=== PATIENT | female | born 1935 | race Caucasian/White ===

== ENCOUNTER 2017-11-03 12:30 | Observation (INO) | payer MEDICARE ==
[~2017-11-03] VITALS: Ht 157.5 cm; Wt 42.6 kg
[2017-11-03] VITALS (248 sets, daily range): BP systolic 110–239; BP diastolic 57–135; PULSE 62–125; TEMP 97.7–98.3; O2SAT 54–100
[2017-11-03 13:19] LABS: HEMOGLOBIN 10.9 g/dl (12.5-16.0); MEAN CELL VOLUME 91 fl (80.0-100.0); MEAN CORPUSCULAR HEMOGLOBIN 29 pg (27.0-31.0); MEAN CORPUSCULAR HGB CONC 32 g/dl (33.0-37.0); MEAN PLATELET VOLUME 9.9 fl (7.4-10.4); PLATELET COUNT 262 K/mm3 (130-400); RED BLOOD COUNT 3.77 M/mm3 (4.10-5.30); REDCELL DISTRIBUTION WIDTH-CV 14.8 % (11.5-14.5)
[2017-11-03 13:23] LABS: HEMATOCRIT 34.3 % (37.0-47.0)
[2017-11-03 13:25] LABS: PROTHROMBIN TIME 11.1 SECONDS (9.7-12.8)
[2017-11-03 13:31] LABS: CREATININE, serum 2.22 mg/dL (0.52-1.25)
[2017-11-03] MEDS ORDERED: ASPIRIN 81M81 MG/TA2 PO (13:49)
[2017-11-03] MEDS ORDERED: MAGNESIUM250 M1 PO (13:50)
[2017-11-03] MEDS ORDERED: AMITRIPTYLINE H25 M1 PO (13:50)
[2017-11-03] MEDS ORDERED: ADVIL200 MG PO (13:51)
[2017-11-03] MEDS ORDERED: MUCINEX 60600 MG/TA1 PO (13:52)
[2017-11-03] MEDS ORDERED: PROBIOTIC FORMU1 CAP PO (13:52)
[2017-11-03] MEDS ORDERED: CLARITIN 1010 MG/TAB PO (13:53)
[2017-11-03] MEDS ORDERED: XALATAN EYE DROPS OD (14:11)
[2017-11-03] MEDS ORDERED: [UNRECOGNIZED DRUG - OTHER] PO (14:26)
[2017-11-03] MEDS ORDERED: CYMBALTA 60MG60 MG PO (14:27)
[2017-11-03] MEDS ORDERED: B-12 500 MCG PO (14:28)
[2017-11-03] MEDS ORDERED: K-DUR 10 MEQ T10 MEQ PO (14:29)
[2017-11-03] MEDS ORDERED: BENEFIBER PO (14:30)
[2017-11-03] MEDS ORDERED: COMBIGAN 0.2%-0.5 ML OU (14:31)
[2017-11-03] MEDS ORDERED: FLONASEALLERGY NS (14:31)
[2017-11-03] MEDS ORDERED: SYNTHROID0.088 MG/T PO (14:32)
[2017-11-03] MEDS ORDERED: DIPHENOXYLATE PO (14:33)
[2017-11-04] VITALS (319 sets, daily range): BP systolic 102–176; BP diastolic 47–99; PULSE 64–96; TEMP 97.9–98.3; O2SAT 54–100
[2017-11-04 05:57] LABS: BASO # 0.1 (0.0-0.2); BASO % 1.1 % (0.0-2.0); EOS # 0.6 (0.0-0.7); EOS % 5.6 % (0-4.0); GRAN # 6.7 (1.4-6.5); GRAN % 67.5 % (42.2-75.2); HEMOGLOBIN 10.9 g/dl (12.5-16.0); LYMPH # 1.5 (1.2-3.4); MEAN CELL VOLUME 90 fl (80.0-100.0); MEAN CORPUSCULAR HEMOGLOBIN 29 pg (27.0-31.0); MEAN CORPUSCULAR HGB CONC 32 g/dl (33.0-37.0); MEAN PLATELET VOLUME 10.1 fl (7.4-10.4); MONO % 10.4 % (1.7-9.3); PLATELET COUNT 245 K/mm3 (130-400); RED BLOOD COUNT 3.78 M/mm3 (4.10-5.30); REDCELL DISTRIBUTION WIDTH-CV 14.5 % (11.5-14.5)
[2017-11-04 06:00] LABS: HEMATOCRIT 33.9 % (37.0-47.0)
[2017-11-04 06:07] LABS: CREATININE, serum 2.15 mg/dL (0.52-1.25); POTASSIUM 4.5 mmol/L (3.4-5.0)
[2017-11-04] MEDS ORDERED: PLAVIX 75MG TAB75 MG PO (10:44)
[2017-11-04] MEDS ORDERED: TOPROL XL100 MG PO (10:44)
== END 2017-11-04 15:00 | disposition home or self-care (01) ==
LOC: COL.CAR 12:30 → ICU 16:03
PROVIDERS: Internal Medicine Interventional Cardiology
DX: I25.118 Atherosclerotic heart disease of native coronary artery with other forms of angina pectoris (principal); R94.39 Abnormal result of other cardiovascular function study; I73.9 Peripheral vascular disease, unspecified; J44.9 Chronic obstructive pulmonary disease, unspecified; N18.9 Chronic kidney disease, unspecified; E44.0 Moderate protein-calorie malnutrition; Z90.710 Acquired absence of both cervix and uterus; Z88.0 Allergy status to penicillin; Z88.1 Allergy status to other antibiotic agents; Z88.5 Allergy status to narcotic agent; Z88.8 Allergy status to other drugs, medicaments and biological substances; Z79.02 Long term (current) use of antithrombotics/antiplatelets; Z79.82 Long term (current) use of aspirin; Z79.51 Long term (current) use of inhaled steroids; Z87.891 Personal history of nicotine dependence
CPT/HCPCS: C9600; G0378; G0379; J0360; J1940; J2250; J3010

== ENCOUNTER → 2018-10-24 | Outpatient (CLI) | payer MEDICARE, OTHER ==
[~2018-10-24] MED LIST: ADVIL200 MG PO; AMITRIPTYLINE H25 M1 PO; APRESOLINE50 MG PO; ASPIRIN 81M81 MG/TA2 PO; B-12 500 MCG PO; BENEFIBER PO; CLARITIN 1010 MG/TAB PO; COMBIGAN 0.2%-0.5 ML OU; CRESTOR 10MG10 MG PO; CYMBALTA 60MG60 MG PO; DIPHENOXYLATE PO; FLONASEALLERGY NS; K-DUR 10 MEQ T10 MEQ PO; K-TAB10 PO; LASIX 40MG TABL40 MG PO; LOMOTIL 0.025 M1 TAB PO; MAGNESIUM250 M1 PO; MUCINEX 60600 MG/TA1 PO; PLAVIX 75MG TAB75 MG PO; PROBIOTIC FORMU1 CAP PO; SYNTHROID0.088 MG/T PO; TOPROL XL 50MG50 MG PO; TOPROL XL100 MG PO; TYLENOL PM EXTR1 TA1 PO; XALATAN EYE DROPS OD; ZANTAC 300300 MG PO; [UNRECOGNIZED DRUG - OTHER] PO
== END ==
LOC: COL.VAS 11:53
DX: N18.4 Chronic kidney disease, stage 4 (severe) (principal)
CPT/HCPCS: G0365

== ENCOUNTER 2019-06-05 18:39 | Inpatient (IN) | payer MEDICARE, OTHER ==
[~2019-06-05] VITALS: Wt 43.8 kg
[~2019-06-05 18:39] MED LIST changes: +LASIX 20MG TABL20 MG PO; -LASIX 40MG TABL40 MG PO
[2019-06-06 11:10] VITALS: BP 121/37; PULSE 50; TEMP 97.7
[2019-06-06] MEDS ORDERED: COMBIGAN 0.2%-0.5 ML OU (14:05)
[2019-06-06] MEDS ORDERED: COREG12.5 MG PO (14:09)
[2019-06-06] MEDS ORDERED: PROAIR HFA0.09 MG/AC IH (14:16)
[2019-06-06] MEDS ORDERED: RESTORIL 1515 MG/CAP PO (14:16)
[2019-06-06 16:15] VITALS: BP 128/35; PULSE 54; TEMP 98.3
[2019-06-06 19:27] VITALS: BP 140/43; PULSE 57; TEMP 98.7
--- NOTE | 2019-06-06 19:30 | NUR ---
Patient is alert and oriented. Complained of stomach pain. Patient is current resting in bed.
--- NOTE | 2019-06-06 20:00 | NUR ---
Received report from ZAID Capellan. Assessment complete. Alert and oriented. Denies any pain or discomfort at this time. Meds administered. Standby assist to BR, urine collected. Fistula to left upper arm with positive bruit and thrill. IV to RFA intact with fluids infusing, dressing CDI. Pt understands need for stool sample and will notify staff. Needs met. Call light within reach.
[2019-06-06 22:10] LABS: PH 5 (5-8); SQUAMOUS EPITHELIAL None Seen /hpf; URINE APPEARANCE Turbid; URINE BACTERIA Moderate /hpf; URINE BILIRUBIN Negative (NEGATIVE); URINE BLOOD Negative (NEGATIVE); URINE COLOR Yellow; URINE GLUCOSE Negative (NEGATIVE); URINE KETONE Negative (NEGATIVE); URINE LEUKOCYTE ESTERASE 3+ (NEGATIVE); URINE NITRATE Positive (NEGATIVE); URINE PROTEIN(semi-quant) 2+ (NEGATIVE); URINE UROBILINOGEN Negative (NEGATIVE); URINE WBC >50 /hpf
[2019-06-06 22:35] LABS: COLLECTION METHOD CLEAN CATCH
[2019-06-06 23:16] VITALS: BP 114/37; PULSE 85; TEMP 97.8
--- NOTE | 2019-06-07 02:30 | NUR ---
Ordered antibiotic started. Pt resting in bed without complaints. Call light within reach. Fall precautions in place.
[2019-06-07 02:55] LABS: URINE PROTEIN:CREAT RATIO 1.73 (0.00-0.14)
[2019-06-07 03:43] VITALS: BP 117/34; PULSE 101; TEMP 97.7
--- NOTE | 2019-06-07 05:40 | NUR ---
Pt made no complaints throughout this shift. meds administered. Needs met. Call light within reach.
--- NOTE | 2019-06-07 06:53 | NUR ---
Report given to ZAID Bill and ZAID Levi.
[2019-06-07 06:57] LABS: ALBUMIN 3.2 gm/dL (3.5-5.0); CALCIUM 7.6 mg/dL (8.4-10.2); CREATININE, serum 4.28 (0.52-1.25); PHOSPHOROUS 5.1 mg/dL (2.5-4.5); POTASSIUM 3.3 mmol/L (3.4-5.0)
[2019-06-07 07:03] LABS: PROTHROMBIN TIME 12.1 SECONDS (9.7-12.8)
[2019-06-07 07:03] LABS: BASO # 0.1 (0.0-0.2); EOS # 0.2 (0.0-0.7); EOS % 2.8 % (0-4.0); GRAN # 4.8 (1.4-6.5); GRAN % 67.3 % (42.2-75.2); LYMPH # 1.2 (1.2-3.4); LYMPH % 16.3 % (20.0-51.0); MEAN CELL VOLUME 91 fl (80.0-100.0); MEAN CORPUSCULAR HGB CONC 32 g/dl (33.0-37.0); MEAN PLATELET VOLUME 10.1 fl (7.4-10.4); MONO # 0.9 (0.1-0.6); PLATELET COUNT 183 K/mm3 (130-400); RED BLOOD COUNT 2.87 M/mm3 (4.10-5.30); REDCELL DISTRIBUTION WIDTH-CV 14.7 % (11.5-14.5)
[2019-06-07 07:05] LABS: PARTIAL THROMBOPLASTIN TIME 27.9 SECONDS (26.0-37.0)
[2019-06-07 07:14] LABS: HEMOGLOBIN 8.3 g/dl (12.5-16.0); MEAN CORPUSCULAR HEMOGLOBIN 29 pg (27.0-31.0)
[2019-06-07 07:27] VITALS: BP 118/34; PULSE 52; TEMP 98.1
[2019-06-07 07:27] LABS: TSH w REFLEX 0.029 uIU/mL (0.465-4.680)
--- NOTE | 2019-06-07 10:14 | NUR ---
TALKED TO DR IMANI GALINDO NURSE AND SHE GAVE A NOW DOES OF SANDI FOR HER NAUSEA THAT SHE IS EXPERIECING.
--- NOTE | 2019-06-07 11:30 | NUR ---
First visit from the track superintendent. No needs right now.
[2019-06-07 12:10] VITALS: BP 127/31; PULSE 50; TEMP 98.4
--- NOTE | 2019-06-07 14:00 | NUR ---
PATIENT HAS BEEN RESTING IN BED ALL DAY BECAUSE OF COMPLAINTS OF NAUSEA AND STOMACH CRAMPING. PATIENT WAS GIVEN SOME ZOFRAN WHICH HELPED WITH HER STOMACH SOME. SHE WAS ABLE TO GET UP WITH PHYSICAL THERAPY AND WALK JUST A BIT OUTSIDE HER ROOM AND THEN BACK. SHE USED THE RESTROOM WHEN SHE WAS UP OUT OF BED WELL.
[2019-06-07 15:53] VITALS: BP 118/35; PULSE 56; TEMP 98.2
[2019-06-07 16:31] LABS: HEPATITIS B SURFACE ANTIBODY <2.0 (()); HEPATITIS B SURFACE ANTIGEN Negative (Negative); HEPATITIS C VIRUS ANTIBODY Negative (Negative)
[2019-06-07 16:44] LABS: TRANSFERRIN 171 mg/dL (192-382)
--- NOTE | 2019-06-07 16:46 | NUR ---
SW met with the patient to discuss discharge plan. The patient lives in [place] with her son, Augustus Salazar (ph#[phone]). She reports independence with ADLs and has a walker. The patient's PCP is Dr. Gilbert Nixon and she receives her medications at [facility] in [place] and [facility]. She reports no difficulties obtaining her meds. The patient does not have advanced directives in EMR, but she states that she does have them completed and that they are at home. She states that her son, Augustus, is her DPOA-HC. The patient plans to return home with her son upon discharge. SW discussed PT's recommendation of home health. The patient reports that she would be interested in home health. SW provided the patient with [email or web address]'s list of home health agencies that serve [place]. The patient chose [facility]. SW contacted and faxed a referral to [facility]. SW awaiting their screen.
--- NOTE | 2019-06-07 17:12 | NUR ---
PATIENT HAS RESTED IN THE BED PRETTY MUCH ALL DAY. SHE DID WORK WITH PHYSICAL THERAPY THIS AFTERNOON SOME. HER STOMACH HAS BEEN ACHY AND SHE WAS NAUSEA BUT ZOFRAN HAS HELPED SOME. SHE HAS NOT HAD ANY NEEDS DURING THE DAY. WILL REPORT OFF TO SALES AGENT FINANCIAL REPORT SERVICE UPON THEIR ARRIVAL.
[2019-06-07 19:38] VITALS: BP 118/38; PULSE 50; TEMP 97.7
--- NOTE | 2019-06-07 20:12 | NUR ---
Recieved report from ZAID Levi. Assessment complete. C/O nausea and abdominal cramping. PRN zofran administered as requested by pt. Pt states decrease in appetite but was able to eat fruits provided on dinner tray. Informed pt that we can provide her with snacks later when she is hungry, pt verbalized understanding and will notify staff. Bowel sound active in all quadrants. States had x1 loose BM today. IV to RFA intact with fluids infusing, dressing CDI. Meds administered. Need attended too. Call light within reach.
[2019-06-08] VITALS (7 sets, daily range): BP systolic 16–130; BP diastolic 32–46; PULSE 47–52; TEMP 97.7–98.4
--- NOTE | 2019-06-08 00:03 | NUR ---
Pt sleeping in bed. Denies any pain at this time. Call light within reach.
--- NOTE | 2019-06-08 01:33 | NUR ---
Assisted pt to BR using walker. Had small loose BM. Meds adminsitered. Needs met. Call light within reach.
--- NOTE | 2019-06-08 04:00 | NUR ---
SpO2 84% on RA, denies SOB or discomfort. Placed pt on 2LO2NC, SpO2 93%. RT notified. Pt denies any pain. Needs met. Call light within reach.
[2019-06-08 05:54] LABS: BASO # 0.1 (0.0-0.2); BASO % 0.7 % (0.0-2.0); EOS # 0.1 (0.0-0.7); EOS % 1.7 % (0-4.0); GRAN # 5.8 (1.4-6.5); GRAN % 77.6 % (42.2-75.2); LYMPH # 0.7 (1.2-3.4); LYMPH % 9.8 % (20.0-51.0); MEAN CELL VOLUME 91 fl (80.0-100.0); MEAN CORPUSCULAR HGB CONC 32 g/dl (33.0-37.0); MEAN PLATELET VOLUME 10.4 fl (7.4-10.4); MONO # 0.7 (0.1-0.6); MONO % 9.3 % (1.7-9.3); PLATELET COUNT 169 K/mm3 (130-400); RED BLOOD COUNT 2.76 M/mm3 (4.10-5.30); REDCELL DISTRIBUTION WIDTH-CV 14.5 % (11.5-14.5)
[2019-06-08 05:55] LABS: MEAN CORPUSCULAR HEMOGLOBIN 29 pg (27.0-31.0)
[2019-06-08 06:05] LABS: CALCIUM 7.3 mg/dL (8.4-10.2); CREATININE, serum 4.42 (0.52-1.25); PHOSPHOROUS 5.8 mg/dL (2.5-4.5); POTASSIUM 3.6 mmol/L (3.4-5.0)
--- NOTE | 2019-06-08 07:01 | NUR ---
Bedside shift report received from ZAID Escalante. PT in bed resting with lights off and eyes closed, funmi krishnan, will continue to monitor.
--- NOTE | 2019-06-08 07:05 | NUR ---
Report given to ZAID Pro.
--- NOTE | 2019-06-08 08:02 | NUR ---
SPO2 ION 2 LPM NC 88%. IN CREASED TO 3 LPM NC 90%
--- NOTE | 2019-06-08 09:00 | NUR ---
Assessment charted, pt has little appetite and food does not sound good but discussed needs to eat protein to help with healing leg bruises and skin tears. Pt agreeable to working with ticketing clerk to increase PO intake. AV fistula maturing, bruit and thrill auscultated, Bedros will be to visit pt shortly. will cotnineu to monitor.
--- NOTE | 2019-06-08 13:47 | NUR ---
Orly, at [facility], reports that they are able to accept the patient for services. SW to inform the patient and will continue to follow.
--- NOTE | 2019-06-08 18:13 | NUR ---
Pt has done well over shift, continues to rest in bed often and only has been up to urinate once since getting PO lasix today. Denies needs, will give bedside shift report to nightshift nurse who will reseume care.
--- NOTE | 2019-06-08 20:15 | NUR ---
Shift assessment complete. Patient ambulated to BR with walker and assist x1. Attempted BM, unsuccessful. No void. Denies pain. 94% on room air, oxygen placed back on for sleep. Denies further needs at this time. Will continue to monitor.
[2019-06-09 00:15] VITALS: BP 131/35; PULSE 55; TEMP 98.3
[2019-06-09 03:42] VITALS: BP 125/43; PULSE 54; TEMP 98.1
--- NOTE | 2019-06-09 04:39 | NUR ---
Patient ambulated to BR with walker and assist x1. Denies pain. Denies further needs at this time. Will continue to monitor.
[2019-06-09 07:35] LABS: BASO % 0.4 % (0.0-2.0); EOS # 0.2 (0.0-0.7); EOS % 1.8 % (0-4.0); GRAN # 6.8 (1.4-6.5); GRAN % 79.7 % (42.2-75.2); LYMPH # 0.7 (1.2-3.4); LYMPH % 7.8 % (20.0-51.0); MEAN CELL VOLUME 90 fl (80.0-100.0); MEAN CORPUSCULAR HGB CONC 32 g/dl (33.0-37.0); MEAN PLATELET VOLUME 10.6 fl (7.4-10.4); MONO # 0.8 (0.1-0.6); MONO % 9.5 % (1.7-9.3); PLATELET COUNT 160 K/mm3 (130-400); RED BLOOD COUNT 2.71 M/mm3 (4.10-5.30); REDCELL DISTRIBUTION WIDTH-CV 14.6 % (11.5-14.5)
[2019-06-09 07:40] LABS: CALCIUM 7.5 mg/dL (8.4-10.2); CREATININE, serum 4.69 (0.52-1.25); PHOSPHOROUS 5.7 mg/dL (2.5-4.5); POTASSIUM 3.7 mmol/L (3.4-5.0)
[2019-06-09 07:42] LABS: HEMATOCRIT 24.4 % (37.0-47.0); HEMOGLOBIN 7.9 g/dl (12.5-16.0); MEAN CORPUSCULAR HEMOGLOBIN 29 pg (27.0-31.0)
[2019-06-09 09:27] VITALS: BP 127/33; PULSE 53; TEMP 98.1
--- NOTE | 2019-06-09 12:37 | NUR ---
PATIENT COMPLAINS OF PAIN IN MIDLINE ABDOMEN.
[2019-06-09 13:11] VITALS: BP 119/41; PULSE 49; TEMP 97.4
[2019-06-09 17:17] VITALS: BP 124/41; PULSE 49; TEMP 97.7
--- NOTE | 2019-06-09 19:24 | NUR ---
Patient is alert and oriented. Complained of mid-line abdominal pain. Patient ate about 15% of breakfast, Lunch and diner. Dr Muir was informed about the pain. New stool occult was order for patient. No stool voided on this shift.
[2019-06-09 19:31] VITALS: BP 128/38; PULSE 53; TEMP 97.8
--- NOTE | 2019-06-09 20:00 | NUR ---
Shift assessment complete. Patient in bed, awake. Denies pain. SCD's placed. repositioned in bed. Denies further needs at this time. Will continue to monitor.
[2019-06-10 00:15] VITALS: BP 121/33; PULSE 56; TEMP 98.7
[2019-06-10 03:34] VITALS: BP 125/40; PULSE 55; TEMP 98
--- NOTE | 2019-06-10 04:06 | NUR ---
Patient in bed, awake. IV in right FA leaking. Removed IV, cath tip intact, pressure applied. New IV placed in right FA, 22g. Attempt x2. Blood return noted, flushed with NS. Pt tolerated well. Denies further needs at this time. Will continue to monitor.
--- NOTE | 2019-06-10 05:53 | NUR ---
Patient in bed, awake. States she feels slightly nauseous. Prn ODT Zofran given per request. Denies further needs at this time. Will continue to monitor.
[2019-06-10 07:49] LABS: BASO % 0.2 % (0.0-2.0); EOS # 0.2 (0.0-0.7); EOS % 1.6 % (0-4.0); GRAN # 7.6 (1.4-6.5); LYMPH # 0.7 (1.2-3.4); LYMPH % 7.5 % (20.0-51.0); MEAN CELL VOLUME 89 fl (80.0-100.0); MEAN CORPUSCULAR HGB CONC 32 g/dl (33.0-37.0); MEAN PLATELET VOLUME 10.5 fl (7.4-10.4); MONO # 0.8 (0.1-0.6); MONO % 8.2 % (1.7-9.3); PLATELET COUNT 168 K/mm3 (130-400); RED BLOOD COUNT 2.91 M/mm3 (4.10-5.30); REDCELL DISTRIBUTION WIDTH-CV 14.4 % (11.5-14.5)
[2019-06-10 07:56] LABS: CALCIUM 7.6 mg/dL (8.4-10.2); CREATININE, serum 4.75 (0.52-1.25)
[2019-06-10 08:01] LABS: HEMATOCRIT 25.8 % (37.0-47.0); HEMOGLOBIN 8.3 g/dl (12.5-16.0); MEAN CORPUSCULAR HEMOGLOBIN 29 pg (27.0-31.0)
[2019-06-10 08:13] VITALS: BP 136/41; PULSE 59; TEMP 97.9
--- NOTE | 2019-06-10 08:26 | NUR ---
Patient resting in bed upon assessment. Denies having any pain and states she is feeling "better" than she has been. Patient has no concerns or complaints at this time. She says she is nervous about dialysis initiation tomorrow. Abrasion/wound present on left mann. Wound has granulation tissue and appears to be an old healing wound. Call light in reach, bed alarm on.
[2019-06-10 11:42] VITALS: BP 129/40; PULSE 55; TEMP 97.7
[2019-06-10 16:00] VITALS: BP 131/39; PULSE 56; TEMP 98
--- NOTE | 2019-06-10 18:42 | NUR ---
Patient had poor appetite throughout shift. Up to chair for a couple of hours early in the afternoon and then back to bed. Patient walked from bathroom to chair on the opposite side of the room and became very fatigued doing so but was able to do it. No difficulty getting back into bed. Patient states she is just "so tired."
--- NOTE | 2019-06-10 19:22 | NUR ---
ASSESSMENT COMPLETE. RESTING IN BED. C/O POOR APPETITE. DENIES PAIN. 4L 02 PER NC. DENIES NEEDS AT THIS TIME.
[2019-06-10 22:32] VITALS: BP 112/31; PULSE 52; TEMP 98.5
[2019-06-11] VITALS (7 sets, daily range): BP systolic 121–152; BP diastolic 35–46; PULSE 52–62; TEMP 97.9–98.9
[2019-06-11 06:30] LABS: BASO % 0.4 % (0.0-2.0); EOS # 0.1 (0.0-0.7); EOS % 1.6 % (0-4.0); GRAN # 6.6 (1.4-6.5); GRAN % 80.3 % (42.2-75.2); LYMPH # 0.6 (1.2-3.4); LYMPH % 7.5 % (20.0-51.0); MEAN CELL VOLUME 90 fl (80.0-100.0); MEAN CORPUSCULAR HGB CONC 33 g/dl (33.0-37.0); MEAN PLATELET VOLUME 10.6 fl (7.4-10.4); MONO # 0.8 (0.1-0.6); MONO % 9.5 % (1.7-9.3); PLATELET COUNT 169 K/mm3 (130-400); RED BLOOD COUNT 2.68 M/mm3 (4.10-5.30); REDCELL DISTRIBUTION WIDTH-CV 14.9 % (11.5-14.5)
[2019-06-11 06:39] LABS: HEMOGLOBIN 7.9 g/dl (12.5-16.0); MEAN CORPUSCULAR HEMOGLOBIN 29 pg (27.0-31.0)
[2019-06-11 06:50] LABS: ALBUMIN 2.8 gm/dL (3.5-5.0); CALCIUM 7.4 mg/dL (8.4-10.2); CREATININE, serum 4.67 (0.52-1.25); POTASSIUM 4.3 mmol/L (3.4-5.0)
--- NOTE | 2019-06-11 13:15 | NUR ---
Patient taken to dialysis this morning, there was an attempt to use new fistula which was unable to be accessed successfully. Did return to room without dialysis. She is ordered to have dialysis cath placed tomorrow morning. Is able to eat and is then NPO after midnight. Is resting in bed comfortably. Family brought chicken for patient's lunch has eaten well.
--- NOTE | 2019-06-11 18:56 | NUR ---
Received report from Rachna in ER. Patient arrived to floor at 0615, was assisted to bed and then to bathroom as she wanted to remove her pants. She independently ambulated to restroom with a steady gait. Family reports that patient is very hard of hearing even with having hearing aids. Lynette is seeing patient at this time. Patient states she is hungry and received verbal diet order. Did place order and notified dietary who received order. Family is at bedside.
--- NOTE | 2019-06-11 20:03 | NUR ---
ASSESSMENT COMPLETE. ASSISSTED TO RESTROOM. SOA UPON EXERTION. RECOVERED @ 3 MINUTES WITH REST. AMBULATES WITH WALKER, 1 ASSIST. DENIES PAIN, NEEDS AT THIS TIME.
[2019-06-12] VITALS (8 sets, daily range): BP systolic 130–155; BP diastolic 35–62; PULSE 51–59; TEMP 97.4–98.4
[2019-06-12 05:59] LABS: BASO % 0.5 % (0.0-2.0); EOS # 0.2 (0.0-0.7); EOS % 1.8 % (0-4.0); GRAN # 6.4 (1.4-6.5); GRAN % 78.9 % (42.2-75.2); LYMPH # 0.5 (1.2-3.4); LYMPH % 6.6 % (20.0-51.0); MEAN CELL VOLUME 90 fl (80.0-100.0); MEAN CORPUSCULAR HGB CONC 33 g/dl (33.0-37.0); MEAN PLATELET VOLUME 10.3 fl (7.4-10.4); MONO # 0.9 (0.1-0.6); MONO % 11.3 % (1.7-9.3); PLATELET COUNT 166 K/mm3 (130-400); RED BLOOD COUNT 2.65 M/mm3 (4.10-5.30)
[2019-06-12 06:00] LABS: HEMATOCRIT 23.9 % (37.0-47.0); HEMOGLOBIN 7.8 g/dl (12.5-16.0); MEAN CORPUSCULAR HEMOGLOBIN 29 pg (27.0-31.0)
[2019-06-12 06:55] LABS: ALBUMIN 2.8 gm/dL (3.5-5.0); CALCIUM 7.3 mg/dL (8.4-10.2); CREATININE, serum 4.66 (0.52-1.25); PHOSPHOROUS 4.8 mg/dL (2.5-4.5); POTASSIUM 4.4 mmol/L (3.4-5.0)
--- NOTE | 2019-06-12 07:30 | NUR ---
Received report, patient is resting in bed, eyes are closed.
--- NOTE | 2019-06-12 09:16 | NUR ---
SEE MERGE DOCUMENTATION FOR MEDICATION ADMINISTRATION TIMES AND INTRA/POST PROCEDURE SEDATION ASSESSMENTS.
--- NOTE | 2019-06-12 16:21 | NUR ---
Uke Operator contacted [facility] and faxed updates. SW to continue to follow.
--- NOTE | 2019-06-12 19:25 | NUR ---
Report given to oncoming shift. Patient is resting in bed watching TV, has no needs at this time. Call light and personal items are within reach.
--- NOTE | 2019-06-12 19:30 | NUR ---
Received notification from Kera in dialysis and she notified me that patient had been taken off of her treatment early due to reaction. Oxygen saturations dropped and patient had to be adminsitered oxygen at 15L via oxymask and was then weaned to 10L via high flow nasal cannula. She returned to her room and assisted to bed. Only complaint is headache. Denies pain to dialysis catheter site. Does state it does get a little sore at times. Saturations have been noted in the upper 90s since return.
--- NOTE | 2019-06-12 20:00 | NUR ---
Recieved report from ZAID Ferreira. Assessment complete. Alert and oriented. Pt laying comfortably in bed. Denies any pain or discomfort, denies nausea or headache. Meds administered. Denies SOB, on 4LO2. Fistula to NAS with positive bruite and thrill. Dialysis cath to rt upper chest intact, no signs of drainage, swelling or redness, dressing in place. INT to RFA intact, flushed, dressing CDI. Needs met. Call light within reach.
[2019-06-13] VITALS (11 sets, daily range): BP systolic 126–151; BP diastolic 26–44; PULSE 55–62; TEMP 97.5–99.3
--- NOTE | 2019-06-13 05:49 | NUR ---
Pt made no complaints during this shift. Meds administered. Call light within reach.
[2019-06-13 06:05] LABS: BASO # 0.1 (0.0-0.2); BASO % 0.7 % (0.0-2.0); EOS # 0.2 (0.0-0.7); EOS % 2.9 % (0-4.0); GRAN # 6.1 (1.4-6.5); GRAN % 72.9 % (42.2-75.2); LYMPH # 0.9 (1.2-3.4); LYMPH % 10.6 % (20.0-51.0); MEAN CELL VOLUME 92 fl (80.0-100.0); MEAN CORPUSCULAR HGB CONC 32 g/dl (33.0-37.0); MEAN PLATELET VOLUME 10.1 fl (7.4-10.4); MONO % 12.3 % (1.7-9.3); PLATELET COUNT 178 K/mm3 (130-400); RED BLOOD COUNT 2.74 M/mm3 (4.10-5.30); REDCELL DISTRIBUTION WIDTH-CV 15.9 % (11.5-14.5)
[2019-06-13 06:12] LABS: ALBUMIN 2.9 gm/dL (3.5-5.0); CALCIUM 7.7 mg/dL (8.4-10.2); CREATININE, serum 3.27 (0.52-1.25); PHOSPHOROUS 3.8 mg/dL (2.5-4.5); POTASSIUM 4.4 mmol/L (3.4-5.0)
[2019-06-13 06:14] LABS: HEMATOCRIT 25.3 % (37.0-47.0); HEMOGLOBIN 8.1 g/dl (12.5-16.0); MEAN CORPUSCULAR HEMOGLOBIN 30 pg (27.0-31.0)
--- NOTE | 2019-06-13 06:59 | NUR ---
Report given to ZAID Ferreira and ZAID Najera.
--- NOTE | 2019-06-13 07:41 | NUR ---
Patient down to EGD with Leora at 0730. Prior to leaving, patient displayed easy, unlabored respirations and was ambulated with walker and gait belt to the restroom. Pre-op medications initiated, patient complains of headache due to having dialysis yesterday.
[2019-06-13 08:17] LABS: ALBUMIN 2.8 gm/dL (3.5-5.0); BILIRUBIN UNCONJUGATED 0.1 mg/dL (0.0-1.1); BILIRUBIN,DIRECT 0.2 mg/dL (0.0-0.4); BILIRUBIN,TOTAL 0.3 mg/dL (0.0-1.0); TOTAL PROTEIN 5.3 gm/dL (6.4-8.2)
--- NOTE | 2019-06-13 08:41 | NUR ---
Patient returned from EGD at 0815. Patient still complains of headache, Tylenol administered. Patient is able to swallow water well and swallows pill with ease. Post op vitals initiated. First set is BP 128/28, HR 55, Temp 98.2, O2 97% on 4L, and Resp 16. This RN with preceptor Hanna stayed in the room with yue Jackson blood pressure (125/27) and then took a manual BP at 0830 (128/32). Doctor notified and will take another BP at 0845.
--- NOTE | 2019-06-13 09:04 | NUR ---
Clinical Laboratory Service Teacher spoke to Shanell at [facility] and advised SW was unsure of discharge date at this time. SW confirmed updates were received yesterday. SW spoke with patient to check in and review discharge plan. Patient still plans to return home with [facility]. SW to continue to follow.
--- NOTE | 2019-06-13 10:18 | NUR ---
Patient taken to dialysis in the bed at 0940.
--- NOTE | 2019-06-13 13:49 | NUR ---
Patient resting in bed at time of assessment. She is easily awoken and requests to use the restroom. She ambulates with assistance to the bathroom with gaitbelt and walker. Her gait is very slow and shuffling. She voids 300 ml of pale yellow, clear urine. Immediately after this, Leora MAR is here to take her to EGD procedure. Antibiotics and fluids initiated prior to departure. Patient does complain of headache.
--- NOTE | 2019-06-13 19:00 | NUR ---
Received report from Hanna. Seen patient awake, lying on bed. She is alert and oriented. Informed patient about blood transfusion and vital signs monitoring while on BT. Denies any pain. Patient uses walker and one assist for ambulation. With INT on right forearm. With O2 at 3lpm via NC.
--- NOTE | 2019-06-13 19:08 | NUR ---
Patient requested piece of chicken for supper that was brought in by family, she ate all of her chicken, one biscuit and 100% of carrots provided by dietary. Family provided protein drink.
--- NOTE | 2019-06-13 19:11 | NUR ---
Renetta had an EGD first thing this morning, followed by 2 hours dialysis. 500 ml were removed in dialysis. Patient's blood pressures were low diastolically prior to dialysis but returned to baseline after dialysis. She had a headache this morning which was treated with Tylenol. Patient will have dialysis again on Tuesday for 3 hours. Patient is currently eating dinner with her son and daughter at the bedside. 2 units of blood was ordered to be administered; consent signed and type/cross complete. Shift report given to ZAID Smith who will begin the blood transfusion.
--- NOTE | 2019-06-13 21:30 | NUR ---
1st unit of blood started. Verified with ZAID Kumar. Vital signs before transfusion taked. Stayed at patient's room for the first 15 minutes.
[2019-06-14] VITALS (14 sets, daily range): BP systolic 133–175; BP diastolic 33–47; PULSE 60–65; TEMP 98–98.9
--- NOTE | 2019-06-14 01:12 | NUR ---
1st unit of blood transfused. Post vital signs taken. Patient tolerated the blood transfusion.
--- NOTE | 2019-06-14 02:01 | NUR ---
2nd unit of blood started. Verified with ZAID Kumar. Vital signs taken before starting the blood transfusion.
--- NOTE | 2019-06-14 05:30 | NUR ---
2nd unit of PRBC consumed. Post vital signs taken. Complained of pain on her right chest with pain score of 8/10. PRN Tylenol given. Will endorse to day shift nurse.
[2019-06-14 06:56] LABS: BASO # 0.1 (0.0-0.2); BASO % 1.1 % (0.0-2.0); EOS # 0.3 (0.0-0.7); GRAN # 6.5 (1.4-6.5); GRAN % 73.1 % (42.2-75.2); HEMATOCRIT 37.6 % (37.0-47.0); LYMPH # 0.9 (1.2-3.4); LYMPH % 10.6 % (20.0-51.0); MEAN CELL VOLUME 92 fl (80.0-100.0); MEAN CORPUSCULAR HEMOGLOBIN 30 pg (27.0-31.0); MEAN CORPUSCULAR HGB CONC 32 g/dl (33.0-37.0); MEAN PLATELET VOLUME 10.7 fl (7.4-10.4); MONO % 10.8 % (1.7-9.3); PLATELET COUNT 142 K/mm3 (130-400); RED BLOOD COUNT 4.07 M/mm3 (4.10-5.30); REDCELL DISTRIBUTION WIDTH-CV 15.6 % (11.5-14.5)
[2019-06-14 07:03] LABS: HEMOGLOBIN 12.2 g/dl (12.5-16.0)
[2019-06-14 07:10] LABS: ALBUMIN 3.3 gm/dL (3.5-5.0); CALCIUM 8.1 mg/dL (8.4-10.2); CREATININE, serum 2.09 (0.52-1.25); PHOSPHOROUS 2.7 mg/dL (2.5-4.5); POTASSIUM 4.3 mmol/L (3.4-5.0)
--- NOTE | 2019-06-14 08:42 | NUR ---
Pt assessment complete. Pt laying in bed upon entry, she is A/O x4. Her breathing is even and unlabored on 4L O2, pt does have shallow breaths but denies SOB. Pt very reluctant to move and grimaces with any movement that is done d/t pain at dialysis catheter site. Site CDI, no edema or erythema present. Pt reporting pain 11/18, Dr. Muir nurse notified, request for pain medication given. Pt denies any N/V. but states she is not hungry and refusing breakfast. Fistula to LUE CDI, bruit auscultated and thrill palpated. No further needs at this time. Call light within reach.
--- NOTE | 2019-06-14 16:22 | NUR ---
Fish Packer contacted [facility] and faxed updates. SW to continue to follow.
--- NOTE | 2019-06-14 18:41 | NUR ---
Pt had uneventful day. Sat in dark room most of day, OOB for the restroom a couple of times. Reports continued pain to catheter site on R chest, unrelieved with any pain medications. Pt repositioned through the day. No needs at this time. Call light within reach.
--- NOTE | 2019-06-14 19:15 | NUR ---
Received report from Landy. Patient is awake, lying on bed. Denies any pain. On O2 at 4lpm via NC. With INT on right forearm. On left arm restrict. With fistula on left arm and dialysis catheter on right chest. Patient is about to eat her dinner. Asssited to the restroom, patient uses her walker.
[2019-06-15 03:13] VITALS: BP 166/46; PULSE 66; TEMP 98.4
--- NOTE | 2019-06-15 06:00 | NUR ---
Patient had an uneventful night. Asssited her in the bathroom this morning. She just complained of pain on her dialysis catheter site with a pain score of 9/10. PRN Tylenol given. She states that she is hoping to go home today. Will endorse to day shift nurse.
[2019-06-15 06:17] LABS: BASO # 0.1 (0.0-0.2); BASO % 1.3 % (0.0-2.0); EOS # 0.4 (0.0-0.7); EOS % 3.9 % (0-4.0); GRAN # 6.9 (1.4-6.5); GRAN % 72.1 % (42.2-75.2); HEMATOCRIT 37.8 % (37.0-47.0); HEMOGLOBIN 12.2 g/dl (12.5-16.0); LYMPH # 1.1 (1.2-3.4); LYMPH % 11.6 % (20.0-51.0); MEAN CELL VOLUME 94 fl (80.0-100.0); MEAN CORPUSCULAR HEMOGLOBIN 30 pg (27.0-31.0); MEAN CORPUSCULAR HGB CONC 32 g/dl (33.0-37.0); MEAN PLATELET VOLUME 9.6 fl (7.4-10.4); MONO % 10.5 % (1.7-9.3); PLATELET COUNT 157 K/mm3 (130-400); RED BLOOD COUNT 4.03 M/mm3 (4.10-5.30); REDCELL DISTRIBUTION WIDTH-CV 16.1 % (11.5-14.5)
[2019-06-15 06:34] LABS: CALCIUM 8.2 mg/dL (8.4-10.2); CREATININE, serum 2.44 (0.52-1.25); PHOSPHOROUS 2.6 mg/dL (2.5-4.5); POTASSIUM 4.3 mmol/L (3.4-5.0)
[2019-06-15 07:32] VITALS: BP 181/48; PULSE 65; TEMP 98.2
--- NOTE | 2019-06-15 08:04 | NUR ---
Pt down to dialysis at this time.
--- NOTE | 2019-06-15 10:31 | NUR ---
TB test given in right forearm. Patient tolerted well.
[2019-06-15 12:02] VITALS: BP 185/58; PULSE 79; TEMP 98.2
--- NOTE | 2019-06-15 12:04 | NUR ---
Pt back from dialysis at this time. She is alert and oriented. Reports pain to catheter site 12/19, PRN Tylenol administered. Pt denies any SOB, currently on 3L O2 via NC. Pt denies any N/V. Ate [employer] yesterday, awaiting lunch. Fistula to LUE bruit auscultated and thrill palpated. Pt has no other needs at this time, family at bedside.
[2019-06-15] MEDS ORDERED: ULTRAM 50MG TAB50 MG PO (14:16)
[2019-06-15] MEDS ORDERED: PROTONIX 40MG T40 MG PO (14:18)
[2019-06-15] MEDS ORDERED: NORVASC 5MG5 MG/TAB PO (14:20)
--- NOTE | 2019-06-15 15:00 | NUR ---
Pt taken off of O2 to assess necessity, 88-89% on RA. real estate services administrator notified for home O2 needs
--- NOTE | 2019-06-15 15:53 | NUR ---
PT ON ROOM AIR X 10 MINUTES. AT REST SPO2 88% O2 BACK ON AT 3 LPM NC SPO2 CLIMBED TO 94%.
--- NOTE | 2019-06-15 16:13 | NUR ---
Restaurant Inspector notified that patient to discharge today and will need home oxygen set up. WAYNE presented and explained DME Choice Form to patient who selected [facility]. Patient's son signed form per patient's request. WAYNE faxed facesheet, signed order, RT Assessment, and H&P to [facility]. WAYNE confirmed fax was received and tank will be delivered to patient's room. WAYNE provided update to RNLandy and patient. WAYNE contacted [facility] and faxed discharge orders. No additional needs identified at this time.
--- NOTE | 2019-06-15 17:46 | NUR ---
Discharge paperwork and instructions reviewed with patient and her family. All questions answered at this time. IV to RFA dc'd catheter tip intact. Pt wheeled out with home oxygen at this time.
== END 2019-06-15 17:47 | disposition home or self-care (01) | DRG 683 ==
LOC: MEDICAL 06-06 10:36
PROVIDERS: Internal Medicine Gastroenterology; ADMIT Internal Medicine Nephrology
PROC: 02H633Z Insertion of Infusion Device into Right Atrium, Percutaneous Approach (ICD-10-PCS; principal; 2019-06-12)
PROC: 5A1D70Z Performance of Urinary Filtration, Intermittent, Less than 6 Hours Per Day (ICD-10-PCS; 2019-06-12)
PROC: 0DB98ZX Excision of Duodenum, Via Natural or Artificial Opening Endoscopic, Diagnostic (ICD-10-PCS; 2019-06-13)
PROC: 0DB68ZX Excision of Stomach, Via Natural or Artificial Opening Endoscopic, Diagnostic (ICD-10-PCS; 2019-06-13)
DX: N17.9 Acute kidney failure, unspecified (principal); I13.2 Hypertensive heart and chronic kidney disease with heart failure and with stage 5 chronic kidney disease, or end stage renal disease; I50.32 Chronic diastolic (congestive) heart failure; E44.0 Moderate protein-calorie malnutrition; Z68.1 Body mass index [BMI] 19.9 or less, adult; N39.0 Urinary tract infection, site not specified; K29.70 Gastritis, unspecified, without bleeding; N18.6 End stage renal disease; I25.10 Atherosclerotic heart disease of native coronary artery without angina pectoris; J44.9 Chronic obstructive pulmonary disease, unspecified; E78.5 Hyperlipidemia, unspecified; D63.1 Anemia in chronic kidney disease; K22.2 Esophageal obstruction; E86.0 Dehydration; I27.20 Pulmonary hypertension, unspecified; F32.9 Major depressive disorder, single episode, unspecified; Z86.718 Personal history of other venous thrombosis and embolism; Z90.49 Acquired absence of other specified parts of digestive tract; Z87.891 Personal history of nicotine dependence; Z86.73 Personal history of transient ischemic attack (TIA), and cerebral infarction without residual deficits
CPT/HCPCS: J0744; J1644; J2250; J2405; J2704; J2916; J3010; J7030; P9016; Q5105